=== PATIENT | female | born 2000 | race Caucasian/White ===

== ENCOUNTER 2019-07-11 08:26 | Emergency (ER) | payer OTHER ==
--- NOTE | 2019-07-11 08:49 | PDOC ---
History of Present Illness - General Chief Complaint: Asthma Stated Complaint: CHEST PAIN - History of Present Illness Initial Comments: The pt is a 18F w/ a history of asthma who presents for evaluation of 6 hours of chest tightness and trouble breathing that feels like an asthma exacerbation per the pt. She states her symptoms started last night with sore throat, and the transitioned to chest tightness and trouble breathing with associated cough. Her sore throat is now resolved. She does not have an inhaler at home. She denies fevers/chills, MORA, vision changes, N/V/C/D, dysuria, hematuria, blood in her stool, or changes in sensation. 07/11/19 08:59 Past History - Past Medical History Allergies/Adverse Reactions: Allergies Allergy/AdvReac Type Severity Reaction Status Date / Time No Known Allergies Allergy Verified 07/11/19 08:40 Home Medications: Ambulatory Orders Albuterol Sulfate Inhaler - [Ventolin Hfa Inhaler -] 1 - 2 inh PO QID PRN #1 inhaler 07/11/19 predniSONE [Deltasone -] 40 mg PO DAILY #8 tablet 07/11/19 Asthma: Yes COPD: No Psychiatric Problems: Yes (ANXIETY) - Immunization History Immunization Up to Date: Yes - Psycho Social/Smoking Cessation Hx Smoking History: Never smoked Drug/Substance Use Hx: Yes (MARIJUANA) Review of Systems - Review of Systems Able to Perform ROS?: Yes Comments:: GENERAL/CONSTITUTIONAL: No fever or chills. No weakness HEAD, EYES, EARS, NOSE AND THROAT: No change in vision. No change in hearing. No sore throat CARDIOVASCULAR: +chest tightness/trouble breathing RESPIRATORY: + cough GASTROINTESTINAL: No nausea, vomiting, diarrhea or constipation GENITOURINARY: No dysuria, frequency, or change in urination MUSCULOSKELETAL: No joint or muscle swelling or pain. No neck or back pain SKIN: No rash NEUROLOGIC: No headache, vertigo, loss of consciousness, or change in strength/ sensation ENDOCRINE: No increased thirst. No abnormal weight change HEMATOLOGIC/LYMPHATIC: No anemia, easy bleeding, or history of blood clots ALLERGIC/IMMUNOLOGIC: No hives or skin allergy 07/11/19 08:48 Is the patient limited Welsh proficient: No *Physical Exam - Vital Signs Last Vital Signs Temp Pulse Resp BP Pulse Ox 99.1 F 103 H 20 143/96 95 07/11/19 08:37 07/11/19 08:37 07/11/19 08:37 07/11/19 08:37 07/11/19 08:37 - Physical Exam Comments: GENERAL: Awake, alert, and oriented to person/place/time, in no acute distress HEAD: No signs of trauma, normocephalic, atraumatic EYES: PERRLA, EOMI, sclera anicteric, conjunctiva clear ENT: Hearing grossly normal, nares patent, oropharynx clear without exudates. Moist mucosa LUNGS: No distress, +b/l diffuse wheezing HEART: Regular rate and rhythm, normal S1 and S2, no murmurs appreciated, peripheral pulses normal and equal bilaterally ABDOMEN: Soft, nontender, normoactive bowel sounds. No guarding, no rebound EXTREMITIES: Normal inspection, Normal range of motion, no edema. No clubbing or cyanosis NEUROLOGICAL: Cranial nerves II through XII grossly intact. Normal speech, no focal sensorimotor deficits SKIN: Warm, Dry 07/11/19 08:48 ED Treatment Course - LABORATORY CBC & Chemistry Diagram: 07/11/19 09:05 07/11/19 09:05 Medical Decision Making - Medical Decision Making The pt is a 18F w/ a history of asthma who presents for evaluation of 6 hours of chest tightness and trouble breathing that feels like an asthma exacerbation per the pt. ED Course CMP, CBC CXR ECG Duo-neb x3, solumedrol 125mg IV once, IVF Will reassess 07/11/19 09:04 Lytes wnl No AMALIA LFTs wnl Leukocytosis noted, likely 2/2 asthma exacerbation and duo-neb No anemia Serum preg neg 07/11/19 10:08 Wheezing resolved, pt feels improved Plan for D/C w/ PCP f/u Rx for inhaler and steroids sent to pt's pharmacy Discharge instructions and return precautions given Pt in agreement and verbalized understanding Dispo: home 07/11/19 10:38 Discharge - Discharge Information Problems reviewed: Yes Clinical Impression/Diagnosis: Asthma exacerbation Qualifiers: Asthma severity: mild Asthma persistence: intermittent Qualified Code(s): J45.21 - Mild intermittent asthma with (acute) exacerbation Condition: Stable - Admission No - Follow up/Referral [place] [facility] [place] [facility] [place]] Codie Morse MD [Non Staff, Medical] - Bisi Ngo [Non Staff, Medical] - Yusra Matson MD [Staff Physician] - Jose Ramon Husain MD [Staff Physician] - - Patient Discharge Instructions Patient Printed Discharge Instructions: Asthma -- Adult Additional Instructions: You were seen in the Emergency Department for evaluation of an asthma exacerbation. Your labs were unremarkable and your x-ray was negative for pneumonia. A prescription for an inhaler and steroids was sent to your pharmacy , take as directed. You may also take over the counter zyrtec for allergy symptoms. Review the handout provided at discharge. Follow up with your primary care provider within a week. An student assistance counselor follow up was also provided. Return to the Emergency Department if you develop fevers/chills, chest pain, trouble breathing (especially despite inhaler use), vomiting, dizziness, worsening symptoms, or any new/concerning symptoms. - Post Discharge Activity Work/Back to School Note: Back to Work
[2019-07-11 08:50] VITALS: TEMP 99.1; BMI 27.4
[2019-07-11] MEDS ORDERED: ALBUTEROL SO4 2.5/IPRATROPIUM 0.5 INH SOL 3 ML VIAL.NEB. NEB ONE (08:55)
[2019-07-11] MEDS ORDERED: SODIUM CHLORIDE 0.9% 500 ML INFUS.BAG IV ONE (08:55)
[2019-07-11] MEDS ORDERED: methylPREDNISolone NA SUCC 125 MG/2 ML VIAL ONE (08:55)
[2019-07-11] MEDS ORDERED: methylPREDNISolone NA SUCC 125 MG/2 ML VIAL IVPB ONE (08:55)
[2019-07-11 09:24] LABS: BASO % 0.2 % (0-2.0); EOS % 1.3 % (0-4.5); HEMATOCRIT 42.8 % (32.4-45.2); HEMOGLOBIN 14.3 GM/dL (10.7-15.3); MCH 28.5 pg (25.7-33.7); MCHC 33.5 g/dl (32.0-36.0); MEAN CELL VOLUME 85.2 fl (80-96); MEAN PLT VOLUME 8.7 fl (7.5-11.1); MONO % 5.8 % (3.8-10.2); NEUT % 78.7 % (42.8-82.8); PLATELET COUNT 351 K/MM3 (134-434); RBC 5.02 M/mm3 (3.60-5.2); RDW 13.5 % (11.6-15.6); WHITE BLOOD COUNT 14.9 K/mm3 (4.0-10.0)
[2019-07-11] MEDS: ALBUTEROL SO4 2.5/IPRATROPIUM 0.5 INH SOL 3 ML VIAL.NEB. NEB SCH ×2 (09:27→09:33)
[2019-07-11 09:50] LABS: ALBUMIN 5.3 g/dl (3.4-5.0); BILIRUBIN,TOTAL 0.9 mg/dL (0.2-1); BLOOD UREA NITROGEN 13.5 mg/dL (7-18); CALCIUM 10.3 mg/dL (8.5-10.1); CREATININE 0.8 mg/dL (0.55-1.3); POTASSIUM 3.7 mmol/L (3.5-5.1); TOT PROT 9.4 g/dl (6.4-8.2)
--- NOTE | 2019-07-11 10:48 | PDOC ---
Documentation entered by Alison Vargas SCRIBE, acting as scribe for Jeffrey Frederick MD. Jeffrey Frederick MD: This documentation has been prepared by the kadyibe, Alison Vargas SCRIBE, under my direction and personally reviewed by me in its entirety. I confirm that the documentation accurately reflects all work, treatment, procedures, and medical decision making performed by me. Attending Attestation - Resident Resident Name: Yaw Barron - ED Attending Attestation I have performed the following: I have examined & evaluated the patient, The case was reviewed & discussed with the resident, I agree w/resident's findings & plan, Exceptions are as noted - HPI HPI: 07/11/19 09:55 The patient is a 18-year-old female with a past medical history significant for childhood asthma (with no recent exacerbations, no ICU, never intubated) who presents to the emergency department with chest tightness and trouble breathing for 6 hours. States the symptoms feel like her asthma. The patient reports she had throat itching and nasal congestion for 1 week since getting 2 kittens one week ago. When she developed the trouble breathing, she did not have an inhaler to use and came to the ED for evaluation. She denies associated fevers, chills, chest pain, headache, dizziness, focal weakness or numbness, abdominal pain, nausea, vomiting, diarrhea, constipation, urinary symptoms or lower extremity edema. Denies recent travel or immobility. Allergies: NKDA Social history: Occasional marijuana use, No reported use of tobacco, alcohol or other recreational drugs Surgical history: . PCP: None. - Physicial Exam PE: 07/11/19 09:11 GENERAL: Awake, alert, and fully oriented, in no acute distress. Conversive with partner at the bedside. EYES: PERRLA, EOMI, sclera anicteric, conjunctiva clear ENT: Oropharynx clear without exudates. Moist mucosa NECK: Normal ROM, supple, no lymphadenopathy, JVD, or masses LUNGS: +bilateral diffuse wheezing. no crackles. Good air movement bilaterally HEART: Regular rate and rhythm, normal S1 and S2, no murmurs, rubs or gallops ABDOMEN: Soft, nontender, normoactive bowel sounds. No guarding, no rebound. No masses EXTREMITIES: Normal range of motion, no edema. No clubbing or cyanosis. No cords , erythema, or tenderness NEUROLOGICAL: Normal speech, cranial nerves intact, Equal strength and sensation bilaterally SKIN: Warm, Dry, normal turgor, no rashes or lesions noted. - Medical Decision Making 07/11/19 10:46 18-year-old female with a history of asthma presents to the emergency department with shortness of breath in the setting of throat itching and nasal congestion after getting 2 kittens 1 week ago. Patient denies fever or chills. Patient mildly tachycardic on arrival, but was receiving albuterol at the time. Differential includes asthma versus allergic reaction versus ACS versus PE. Likely asthma exacerbation in the setting of allergic reaction to new kittens in the last week, less likely due to viral syndrome. Unlikely PE is no PE risk factors, patient is not on exogenous hormones and has no recent travel or immobility. Her EKG is nonischemic. Patient is feeling significantly better with nebs and steroids. Her lungs are now clear. Plan to discharge patient with a course of prednisone, albuterol as needed, and recommendation to take Zyrtec daily. Patient reports she will be giving away the kittens soon. She is eager to go home. Return precautions discussed. I discussed the physical exam findings, ancillary test results and final diagnoses with the patient. I answered all of the patient's questions. The patient was satisfied with the care received and felt comfortable with the discharge plan and treatment plan. The patient will call their primary care physician within 24 hours to arrange follow-up and will return to the Emergency Department with any new, persistent or worsening symptoms. Heart Score/ECG Review #1 07/11/19 10:48 Twelve-lead EKG was performed and reviewed by me. Sinus tachycardia, rate 102. Normal axis and intervals. No ST elevations.
[2019-07-11 10:52] VITALS: BP 112/64; PULSE 99
--- NOTE | 2019-07-11 20:16 | EKG ---
Test Reason : Blood Pressure : / mmHG Vent. Rate : 102 BPM Atrial Rate : 102 BPM P-R Int : 126 ms QRS Dur : 078 ms QT Int : 328 ms P-R-T Axes : 066 067 030 degrees QTc Int : 427 ms SINUS TACHYCARDIA OTHERWISE NORMAL ECG NO PREVIOUS ECGS AVAILABLE Confirmed by MD DARLENE, JESSICA ([id number]) on 07/11/2019 8:15:50 PM Referred By: Confirmed By:JESSICA COLON MD
== END 2019-07-11 11:00 | disposition home or self-care (01) ==
LOC: JER 08:26
PROC: 3E0333Z Introduction of Anti-inflammatory into Peripheral Vein, Percutaneous Approach (ICD-10-PCS; principal; 2019-07-11)
PROC: 3E0F7GC Introduction of Other Therapeutic Substance into Respiratory Tract, Via Natural or Artificial Opening (ICD-10-PCS; 2019-07-11)
DX: J45.21 Mild intermittent asthma with (acute) exacerbation (principal)
CPT/HCPCS: 36415; 71045-TC-FY; 80053; 84703; 85025; 93005; 93010; 94640; 96374; 99283-25

== ENCOUNTER 2019-11-02 11:59 | Emergency (ER) | payer OTHER ==
[2019-11-02 12:20] VITALS: BP 132/93; PULSE 111; TEMP 98.5; BMI 28.8
[2019-11-02] MEDS ORDERED: ONDANSETRON *ODT* 4 MG TABLET SL ONE (12:26)
--- NOTE | 2019-11-02 12:29 | PDOC ---
History of Present Illness - General Chief Complaint: Nausea/Vomiting Stated Complaint: VOMITING Time Seen by Provider: 11/02/19 12:19 - History of Present Illness Initial Comments: 11/02/19 12:27 19-year-old female without comorbidities presents for vomiting x1 day no systemic symptoms Past History - Past Medical History Allergies/Adverse Reactions: Allergies Allergy/AdvReac Type Severity Reaction Status Date / Time No Known Allergies Allergy Verified 11/02/19 12:16 Home Medications: Ambulatory Orders Albuterol Sulfate Inhaler - [Ventolin HFA Inhaler -] 1 - 2 inh PO QID #1 inhaler 07/11/19 Albuterol Sulfate Inhaler - [Ventolin HFA Inhaler -] 1 - 2 inh PO QID #1 inhaler 07/11/19 Albuterol Sulfate Inhaler - [Ventolin Hfa Inhaler -] 1 - 2 inh PO QID PRN #1 inhaler 07/11/19 predniSONE [Deltasone -] 40 mg PO DAILY #8 tablet 07/11/19 predniSONE [Deltasone] 20 mg PO BID #8 tablet 07/11/19 predniSONE [Deltasone] 40 mg PO BID #8 tablet 07/11/19 Ondansetron [Zofran *Odt*] 4 mg SL BID #14 od.tablet 11/02/19 Asthma: Yes COPD: No Psychiatric Problems: Yes (ANXIETY) - Immunization History Immunization Up to Date: Yes - Psycho Social/Smoking Cessation Hx Smoking History: Never smoked Information on smoking cessation initiated: No Hx Alcohol Use: No Drug/Substance Use Hx: No Review of Systems - Review of Systems Constitutional: No: Fever ABD/GI: Yes: Diarrhea, Nausea, Vomiting *Physical Exam - Vital Signs Last Vital Signs Temp Pulse Resp BP Pulse Ox 98.5 F 111 H 17 132/93 99 11/02/19 12:16 11/02/19 12:16 11/02/19 12:16 11/02/19 12:16 11/02/19 12:16 - Physical Exam 11/02/19 12:27 GENERAL: The patient is awake, alert, and fully oriented, in no acute distress. HEAD: Normal with no signs of trauma. EYES: sclera anicteric, conjunctiva clear. ENT: Ears normal tympanic membranes normal oropharynx clear uvula midline NECK: Normal range of motion LUNGS: Breath sounds equal, clear to auscultation bilaterally. No wheezes, and no crackles. HEART: S1 and S2 without murmur, rub or gallop. ABDOMEN: Soft, nontender, normoactive bowel sounds. No guarding, no rebound. No masses. EXTREMITIES: Normal range of motion, no edema. No clubbing or cyanosis. No cords, erythema, or tenderness. NEUROLOGICAL: Cranial nerves II through XII grossly intact. PSYCH: Normal mood, normal affect. SKIN: Warm, Dry, normal turgor, no rashes or lesions noted. Medical Decision Making - Medical Decision Making 11/02/19 12:27 Supportive care for viral gastroenteritis Discharge - Discharge Information Problems reviewed: Yes Clinical Impression/Diagnosis: Viral gastroenteritis Condition: Stable Disposition: HOME - Admission No - Additional Discharge Information Prescriptions: Ondansetron [Zofran *Odt*] 4 mg SL BID #14 od.tablet - Follow up/Referral Referrals: Ara Alonso MD [Primary Care Provider] - - Patient Discharge Instructions Additional Instructions: Return to the emergency room for worsening symptoms. Small sips of Pedialyte throughout the day to maintain hydration. Tylenol and Motrin as needed for fever and as directed. Without fail follow-up with your primary care physician in 1 to 2 days for further evaluation and treatment options. - Post Discharge Activity
[2019-11-02] MEDS ORDERED: ONDANSETRON *ODT* 4 MG TABLET ONE (12:30)
== END 2019-11-02 12:44 | disposition home or self-care (01) ==
LOC: JERFT 11:59
DX: A08.4 Viral intestinal infection, unspecified (principal); B97.89 Other viral agents as the cause of diseases classified elsewhere; J45.909 Unspecified asthma, uncomplicated; F41.9 Anxiety disorder, unspecified
CPT/HCPCS: 99284-25; Q0162

== ENCOUNTER 2020-08-03 23:05 | Emergency (ER) | payer SELFPAY ==
[2020-08-03 23:10] VITALS: BMI 27.4
[2020-08-04] MEDS ORDERED: ALBUTEROL SO4 2.5/IPRATROPIUM 0.5 INH SOL 3 ML VIAL.NEB. NEB ONE ×4 (00:26→00:35)
[2020-08-04] MEDS ORDERED: MAGNESIUM SULF 50% (8.12 MEQ/2 ML-1 GM VIAL) ONE (00:26)
[2020-08-04] MEDS ORDERED: methylPREDNISolone NA SUCC 125 MG/2 ML VIAL ONE (00:27)
[2020-08-04] MEDS ORDERED: SODIUM CHLORIDE 0.9% 1000 ML INFUS.BAG IV ONE (00:33)
[2020-08-04] MEDS ORDERED: MAGNESIUM SULF 50% (8.12 MEQ/2 ML-1 GM VIAL) IVPB ONE (00:33)
[2020-08-04] MEDS ORDERED: methylPREDNISolone NA SUCC 125 MG/2 ML VIAL IVPB ONE (00:33)
[2020-08-04 00:56] LABS: BASO % 0.2 % (0-2.0); EOS % 1.7 % (0-4.5); HEMOGLOBIN 9.9 GM/dL (10.7-15.3); LYMPH % 9.3 % (8-40); MCH 24.7 pg (25.7-33.7); MEAN CELL VOLUME 77.1 fl (80-96); MEAN PLT VOLUME 9.1 fl (7.5-11.1); MONO % 6.5 % (3.8-10.2); NEUT % 82.3 % (42.8-82.8); PLATELET COUNT 234 K/MM3 (134-434); RBC 4.02 M/mm3 (3.60-5.2); RDW 14.3 % (11.6-15.6); WHITE BLOOD COUNT 14.6 K/mm3 (4.0-10.0)
[2020-08-04 02:23] LABS: CHLORIDE 106 mmol/L (98-107); POTASSIUM 3.5 mmol/L (3.5-5.1); SODIUM 139 mmol/L (136-145)
[2020-08-04 02:25] LABS: ALBUMIN 2.7 g/dl (3.4-5.0); CALCIUM 9.1 mg/dL (8.5-10.1)
[2020-08-04 02:26] LABS: ANION GAP 10 MMOL/L (8-16); CO2 22 mmol/L (21-32); GLUCOSE,RANDOM 104 mg/dL (74-106); MAGNESIUM 1.9 mg/dL (1.8-2.4)
[2020-08-04] MEDS ORDERED: ALBUTEROL SO4 0.083% IH SOL 2.5 MG/3 ML VIAL.NEB. NEB ONE ×4 (02:26→04:58)
[2020-08-04 02:29] LABS: CREATININE 0.4 mg/dL (0.55-1.3); SGOT/AST 14 U/L (15-37); SGPT/ALT 17 U/L (13-61)
[2020-08-04 02:32] LABS: ALK PHOS 126 U/L (45-117); BILIRUBIN,TOTAL 0.2 mg/dL (0.2-1); TOT PROT 6.9 g/dl (6.4-8.2)
[2020-08-04 04:16] LABS: INR 0.97 (0.83-1.09)
[2020-08-04] MEDS ORDERED: LACTATED RINGERS SOLUTION 1000 ML INFUS.BAG IV ONE (07:39)
[2020-08-04 08:09] VITALS: PULSE 106
[2020-08-04 10:00] VITALS: BP 126/74; TEMP 98.7
== END 2020-08-04 09:20 | disposition short-term general hospital (02) ==
LOC: JER 23:05
PROC: 3E0F7GC Introduction of Other Therapeutic Substance into Respiratory Tract, Via Natural or Artificial Opening (ICD-10-PCS; principal; 2020-08-04)
PROC: 3E033NZ Introduction of Analgesics, Hypnotics, Sedatives into Peripheral Vein, Percutaneous Approach (ICD-10-PCS; 2020-08-04)
PROC: 3E033GC Introduction of Other Therapeutic Substance into Peripheral Vein, Percutaneous Approach (ICD-10-PCS; 2020-08-04)
DX: J45.901 Unspecified asthma with (acute) exacerbation (principal); Z3A.32 32 weeks gestation of pregnancy; R00.0 Tachycardia, unspecified
CPT/HCPCS: 36415; 71045-TC-FY; 76815; 80053; 82550; 83735; 84484; 85025; 85610; 85730; 93005; 93010; 93970-TC; 99285-25; C9803; U0003

== ENCOUNTER 2021-12-24 06:21 | Emergency (ER) | payer OTHER ==
[2021-12-24 06:36] VITALS: TEMP 97.9; BMI 34.7
[2021-12-24] MEDS ORDERED: predniSONE 20 MG TABLET (UD) PO ONE (07:33)
[2021-12-24] MEDS ORDERED: LORATADINE 10 MG TABLET PO ONE (07:34)
[2021-12-24] MEDS ORDERED: predniSONE 20 MG TABLET (UD) ONE (07:37)
[2021-12-24] MEDS ORDERED: LORATADINE 10 MG TABLET ONE (07:37)
[2021-12-24] MEDS: ALBUTEROL SO4 2.5/IPRATROPIUM 0.5 INH SOL 3 ML VIAL.NEB. NEB SCH ×3 (07:47→08:48)
[2021-12-24] MEDS ORDERED: ALBUTEROL SO4 2.5/IPRATROPIUM 0.5 INH SOL 3 ML VIAL.NEB. NEB ONE (08:19)
[2021-12-24 09:43] VITALS: BP 128/69; PULSE 105
== END 2021-12-24 09:53 | disposition home or self-care (01) ==
LOC: JER 06:21
PROC: 3E0F7GC Introduction of Other Therapeutic Substance into Respiratory Tract, Via Natural or Artificial Opening (ICD-10-PCS; principal; 2021-12-24)
DX: J45.901 Unspecified asthma with (acute) exacerbation (principal)
CPT/HCPCS: 71046-TC-FY; 99285-25

== ENCOUNTER 2022-01-05 16:33 | Emergency (ER) | payer OTHER ==
[2022-01-05 16:58] VITALS: BP 112/67; PULSE 78; TEMP 98; BMI 31.8
[2022-01-05] MEDS ORDERED: ALBUTEROL SO4 2.5/IPRATROPIUM 0.5 INH SOL 3 ML VIAL.NEB. NEB ONE (17:38)
[2022-01-05] MEDS ORDERED: predniSONE 20 MG TABLET (UD) ONE (17:40)
[2022-01-05] MEDS ORDERED: predniSONE 20 MG TABLET (UD) PO ONE (17:45)
[2022-01-05] MEDS: ALBUTEROL SO4 2.5/IPRATROPIUM 0.5 INH SOL 3 ML VIAL.NEB. NEB SCH (17:47)
== END 2022-01-05 18:23 | disposition home or self-care (01) ==
LOC: JERFT 16:33
PROC: 3E0F7GC Introduction of Other Therapeutic Substance into Respiratory Tract, Via Natural or Artificial Opening (ICD-10-PCS; principal; 2022-01-05)
DX: J45.909 Unspecified asthma, uncomplicated (principal)
CPT/HCPCS: 99283-25

== ENCOUNTER 2022-01-12 15:18 | Emergency (ER) | payer OTHER ==
[2022-01-12 15:39] VITALS: BP 98/62; PULSE 82; TEMP 98.1; BMI 32.4
[2022-01-12] MEDS ORDERED: predniSONE 20 MG TABLET (UD) PO ONE (16:11)
[2022-01-12] MEDS ORDERED: ALBUTEROL SO4 2.5/IPRATROPIUM 0.5 INH SOL 3 ML VIAL.NEB. NEB ONE ×4 (16:15→17:25)
[2022-01-12] MEDS ORDERED: predniSONE 20 MG TABLET (UD) ONE (16:25)
== END 2022-01-12 17:47 | disposition home or self-care (01) ==
LOC: JERFT 15:18
PROC: 3E0F7GC Introduction of Other Therapeutic Substance into Respiratory Tract, Via Natural or Artificial Opening (ICD-10-PCS; principal; 2022-01-12)
DX: J45.21 Mild intermittent asthma with (acute) exacerbation (principal)
CPT/HCPCS: 99284-25

== ENCOUNTER 2022-05-10 18:54 | Emergency (ER) | payer OTHER ==
[2022-05-10 19:01] VITALS: BP 125/79; PULSE 100; RESP 19; TEMP 98.3; BMI 37.0
== END 2022-05-10 20:24 | disposition home or self-care (01) ==
LOC: JERFT 18:54
DX: H60.393 Other infective otitis externa, bilateral (principal)
CPT/HCPCS: 99281-25

== ENCOUNTER 2022-12-05 16:39 | Emergency (ER) | payer OTHER ==
[2022-12-05 17:01] VITALS: BP 118/65; PULSE 112; RESP 20; TEMP 97.9; BMI 33.5
[2022-12-05] MEDS ORDERED: KETOROLAC TROMETHAMINE 30 MG/1 ML VIAL IM ONE (17:55)
[2022-12-05] MEDS ORDERED: ACETAMINOPHEN 160 MG/5 ML *Children Solution PO ONE (17:55)
[2022-12-05] MEDS ORDERED: DEXAMETHASONE SOD PHOSPHATE 10 MG/1 ML VIAL IM ONE (17:56)
[2022-12-05] MEDS ORDERED: DEXAMETHASONE SOD PHOSPHATE 10 MG/1 ML VIAL ONE (17:57)
[2022-12-05] MEDS ORDERED: KETOROLAC TROMETHAMINE 30 MG/1 ML VIAL ONE (17:57)
[2022-12-05] MEDS ORDERED: ACETAMINOPHEN 160 MG/5 ML 473ML BULK BOTTLE ONE (17:57)
[2022-12-05 18:15] LABS: THROAT:GRP A STREP NOT DETECTED (NOTDETECTED)
== END 2022-12-05 18:44 | disposition home or self-care (01) ==
LOC: JERFT 16:39 → JER 16:39 → JERFT 18:44
PROC: 3E023GC Introduction of Other Therapeutic Substance into Muscle, Percutaneous Approach (ICD-10-PCS; principal; 2022-12-05)
PROC: 3E0233Z Introduction of Anti-inflammatory into Muscle, Percutaneous Approach (ICD-10-PCS; 2022-12-05)
DX: J02.9 Acute pharyngitis, unspecified (principal); R09.81 Nasal congestion; Z20.822 Contact with and (suspected) exposure to COVID-19
CPT/HCPCS: 0241U-QW; 87651; 99284-25; J1100

== ENCOUNTER 2023-02-14 19:21 | Emergency (ER) | payer OTHER ==
[2023-02-14 19:29] VITALS: TEMP 98.6; BMI 31.8
[2023-02-14] MEDS ORDERED: ALBUTEROL SO4 2.5/IPRATROPIUM 0.5 INH SOL 3 ML VIAL.NEB. NEB ONE (20:16)
[2023-02-14 20:44] LABS: BASO % 0.4 % (0-2.0); EOS % 5.4 % (0-4.5); HEMATOCRIT 36.7 % (32.4-45.2); HEMOGLOBIN 12.1 GM/dL (10.7-15.3); LYMPH % 21.8 % (8-40); MCH 24.8 pg (25.7-33.7); MEAN CELL VOLUME 74.9 fl (80-96); MEAN PLT VOLUME 8.4 fl (7.5-11.1); MONO % 6.9 % (3.8-10.2); NEUT % 65.5 % (42.8-82.8); PLATELET COUNT 306 10^3/uL (134-434); RDW 16.8 % (11.6-15.6); WHITE BLOOD COUNT 8.2 K/mm3 (4.0-10.0)
[2023-02-14 21:05] LABS: BLOOD UREA NITROGEN 14.4 mg/dL (7-18)
[2023-02-14 21:08] LABS: CREATININE 0.6 mg/dL (0.55-1.3)
[2023-02-14 21:10] LABS: BILIRUBIN,TOTAL 0.2 mg/dL (0.2-1); TOT PROT 7.7 g/dl (6.4-8.2)
[2023-02-14] MEDS ORDERED: methylPREDNISolone NA SUCC 125 MG/2 ML VIAL IVPUSH ONE (21:46)
[2023-02-14] MEDS ORDERED: MAGNESIUM SULF 50% (8.12 MEQ/2 ML-1 GM VIAL) IVPB ONE (21:46)
[2023-02-14] MEDS: ALBUTEROL SO4 2.5/IPRATROPIUM 0.5 INH SOL 3 ML VIAL.NEB. NEB SCH (21:48)
[2023-02-14] MEDS ORDERED: MAGNESIUM SULFATE IN WATER 2 GM/50 ML IVPB IVPB ONE (21:49)
[2023-02-14] MEDS ORDERED: methylPREDNISolone NA SUCC 125 MG/2 ML VIAL ONE (21:49)
[2023-02-14 22:43] VITALS: BP 122/77; PULSE 101; RESP 20
== END 2023-02-14 23:10 | disposition home or self-care (01) ==
LOC: JER 19:21
PROC: 3E033GC Introduction of Other Therapeutic Substance into Peripheral Vein, Percutaneous Approach (ICD-10-PCS; principal; 2023-02-14)
PROC: 3E033GC Introduction of Other Therapeutic Substance into Peripheral Vein, Percutaneous Approach (ICD-10-PCS; 2023-02-14)
PROC: 3E0F7GC Introduction of Other Therapeutic Substance into Respiratory Tract, Via Natural or Artificial Opening (ICD-10-PCS; 2023-02-14)
DX: J45.901 Unspecified asthma with (acute) exacerbation (principal); R05.9 Cough, unspecified; R06.02 Shortness of breath; Z20.822 Contact with and (suspected) exposure to COVID-19
CPT/HCPCS: 0241U-QW; 36415; 71045-TC-FY; 80053; 84703; 85025; 99284-25

== ENCOUNTER 2023-07-16 09:22 | Emergency (ER) | payer OTHER ==
[2023-07-16 09:28] VITALS: BP 131/81; PULSE 96; RESP 20; TEMP 98.9; BMI 32.5
[2023-07-16] MEDS ORDERED: predniSONE 10 MG TABLET (UD) ONE ×2 (09:53→09:55)
[2023-07-16] MEDS ORDERED: ALBUTEROL SO4 2.5/IPRATROPIUM 0.5 INH SOL 3 ML VIAL.NEB. NEB ONE ×2 (09:53→10:26)
[2023-07-16] MEDS ORDERED: predniSONE 20 MG TABLET (UD) ONE (09:53)
[2023-07-16] MEDS: predniSONE 20 MG TABLET (UD) PO SCH ×2 (10:01→10:09)
[2023-07-16] MEDS: ALBUTEROL SO4 2.5/IPRATROPIUM 0.5 INH SOL 3 ML VIAL.NEB. NEB SCH ×4 (10:01→10:51)
[2023-07-16] MEDS ORDERED: predniSONE 20 MG TABLET (UD) PO SCH (10:06)
[2023-07-16] MEDS ORDERED: ALBUTEROL SO4 0.083% IH SOL 2.5 MG/3 ML VIAL.NEB. NEB ONE ×2 (11:20→11:45)
== END 2023-07-16 12:42 | disposition home or self-care (01) ==
LOC: JERFT 09:22
PROC: 3E0F7GC Introduction of Other Therapeutic Substance into Respiratory Tract, Via Natural or Artificial Opening (ICD-10-PCS; principal; 2023-07-16)
PROC: 3E0F7GC Introduction of Other Therapeutic Substance into Respiratory Tract, Via Natural or Artificial Opening (ICD-10-PCS; 2023-07-16)
DX: J45.20 Mild intermittent asthma, uncomplicated (principal); R06.02 Shortness of breath; R05.9 Cough, unspecified; R09.81 Nasal congestion; Z20.822 Contact with and (suspected) exposure to COVID-19
CPT/HCPCS: 0241U-QW; 99284-25

== ENCOUNTER 2023-09-29 00:15 | Emergency (ER) | payer OTHER ==
[2023-09-29 00:29] VITALS: BP 133/88; PULSE 98; RESP 18; TEMP 98; BMI 35.9
== END 2023-09-29 01:52 | disposition home or self-care (01) ==
LOC: JER 00:15
DX: S93.401A Sprain of unspecified ligament of right ankle, initial encounter (principal); M25.571 Pain in right ankle and joints of right foot; W00.0XXA Fall on same level due to ice and snow, initial encounter
CPT/HCPCS: 73610-TC-RT-FY; 73630-TC-RT-FY; 99283-25

== ENCOUNTER 2023-10-18 08:26 | Emergency (ER) | payer OTHER ==
[2023-10-18 08:47] VITALS: BMI 32.9
[2023-10-18] MEDS ORDERED: ACETAMINOPHEN 500 MG TABLET (FP) PO ONE (09:02)
[2023-10-18] MEDS ORDERED: ACETAMINOPHEN 500 MG TABLET (FP) ONE (09:06)
[2023-10-18] MEDS ORDERED: ALBUTEROL SO4 2.5/IPRATROPIUM 0.5 INH SOL 3 ML VIAL.NEB. NEB ONE (09:06)
[2023-10-18] MEDS ORDERED: methylPREDNISolone NA SUCC 125 MG/2 ML VIAL IVPUSH ONE (09:09)
[2023-10-18] MEDS ORDERED: LACTATED RINGERS SOLUTION 1000 ML INFUS.BAG IV ONE (09:09)
[2023-10-18] MEDS: ALBUTEROL SO4 2.5/IPRATROPIUM 0.5 INH SOL 3 ML VIAL.NEB. NEB SCH ×4 (09:20→10:07)
[2023-10-18] MEDS ORDERED: methylPREDNISolone NA SUCC 125 MG/2 ML VIAL ONE (09:56)
[2023-10-18 10:17] VITALS: BP 107/70; PULSE 111; RESP 19; TEMP 99.5
== END 2023-10-18 11:32 | disposition home or self-care (01) ==
LOC: JERFT 08:26
PROC: 3E0F7GC Introduction of Other Therapeutic Substance into Respiratory Tract, Via Natural or Artificial Opening (ICD-10-PCS; principal; 2023-10-18)
DX: R05.9 Cough, unspecified (principal); R09.81 Nasal congestion; J45.901 Unspecified asthma with (acute) exacerbation; Z20.822 Contact with and (suspected) exposure to COVID-19
CPT/HCPCS: 0241U-QW; 99284-25

== ENCOUNTER 2024-05-26 14:58 | Emergency (ER) | payer OTHER ==
[2024-05-26 15:03] VITALS: RESP 18; BMI 35.4
[2024-05-26] MEDS: SODIUM CHLORIDE 0.9% 500 ML INFUS.BAG IV ONE (16:08)
[2024-05-26] MEDS ORDERED: PROCHLORPERAZINE INJECTION 10 MG/2 ML VIAL ONE (16:11)
[2024-05-26] MEDS: PROCHLORPERAZINE INJECTION 10 MG/2 ML VIAL IVPB ONE (16:16)
[2024-05-26 16:20] LABS: BASO % 0.3 % (0-2.0); EOS % 0.1 % (0-4.5); HEMATOCRIT 37.5 % (32.4-45.2); HEMOGLOBIN 12.3 GM/dL (10.7-15.3); LYMPH % 12.7 % (8-40); MCH 24.4 pg (25.7-33.7); MCHC 32.9 g/dl (32.0-36.0); MEAN CELL VOLUME 74.2 fl (80-96); MEAN PLT VOLUME 7.6 fl (7.5-11.1); NEUT % 83.9 % (42.8-82.8); PLATELET COUNT 404 10^3/uL (134-434); RBC 5.05 M/mm3 (3.60-5.2); RDW 16.8 % (11.6-15.6)
[2024-05-26 16:41] LABS: CALCIUM 9.7 mg/dL (8.5-10.1)
[2024-05-26 16:42] LABS: ALBUMIN 4.3 g/dl (3.4-5.0); BLOOD UREA NITROGEN 11.1 mg/dL (7-18)
[2024-05-26 16:45] LABS: CREATININE 0.7 mg/dL (0.55-1.3)
[2024-05-26 16:46] LABS: TOT PROT 8.4 g/dl (6.4-8.2)
[2024-05-26] MEDS ORDERED: ACETAMINOPHEN INJECTION 100 ML ONE (18:20)
[2024-05-26] MEDS ORDERED: METOCLOPRAMIDE HCL INJECTION 10 MG/2 ML VIAL ONE (18:20)
[2024-05-26] MEDS: ACETAMINOPHEN 1000 MG/100 ML BAG IVPB ONE (18:40)
[2024-05-26] MEDS: METOCLOPRAMIDE HCL INJECTION 10 MG/2 ML VIAL IVPUSH ONE (19:01)
[2024-05-26 19:56] VITALS: BP 128/84; PULSE 103; TEMP 98.2
== END 2024-05-26 20:50 | disposition home or self-care (01) ==
LOC: JER 14:58
PROC: 3E033NZ Introduction of Analgesics, Hypnotics, Sedatives into Peripheral Vein, Percutaneous Approach (ICD-10-PCS; principal; 2024-05-26)
PROC: 3E033GC Introduction of Other Therapeutic Substance into Peripheral Vein, Percutaneous Approach (ICD-10-PCS; 2024-05-26)
PROC: 3E033GC Introduction of Other Therapeutic Substance into Peripheral Vein, Percutaneous Approach (ICD-10-PCS; 2024-05-26)
PROC: 3E033GC Introduction of Other Therapeutic Substance into Peripheral Vein, Percutaneous Approach (ICD-10-PCS; 2024-05-26)
DX: G97.1 Other reaction to spinal and lumbar puncture (principal); F41.9 Anxiety disorder, unspecified
CPT/HCPCS: 36415; 80053; 84703; 85025; 93005; 93010; 99284-25; J0131